=== PATIENT | female | born 1960 | race Caucasian/White ===

== ENCOUNTER 2021-02-02 10:19 | Outpatient (REF) | payer OTHER, SELFPAY ==
[2021-02-02 14:13] LABS: Glucose Urine UA NEG (NEG); Leukocyte Esterase Urine 1+ (NEG); Nitrite Urine POS (NEG); PH 7.5 (5.0-8.0); UACC Culture Trigger YES; Urine Blood 3+ (NEG); Urine Ketones NEG (NEG); Urine Protein 2+ MG/DL (NEG-TRACE)
[2021-02-02 14:21] LABS: Appearance Urine CLOUDY; Color Urine YELLOW
[2021-02-02 14:25] LABS: Bacteria Urine 4+ /LPF; Oval Fat Bodies Urine NOTED; RBC Urine 30-49 /HPF (0); Squamous Epithelial Cell Urine 1+ /LPF; WBC Urine 30-49 /HPF (0-4)
== END 2021-02-02 10:20 | disposition home or self-care (01) ==
LOC: HO.LAB 10:19
PROVIDERS: Internal Medicine; Visit Provider Nurse Practitioner Family
DX: R30.0 Dysuria (principal)
CPT/HCPCS: 81001; 81003; 87086; 87088; 87186

== ENCOUNTER 2021-02-08 09:20 | Outpatient (REF) | payer OTHER, SELFPAY ==
[2021-02-08 11:26] LABS: Alanine Aminotransferase 22 U/L (0-31); Albumin Level 3.8 g/dL (3.5-5.0); Alkaline Phosphatase 72 U/L (39-117); Anion Gap 8 (12-20); Aspartate Amino Transferase 18 U/L (5-31); Bilirubin Total 0.6 mg/dL (0.0-1.0); Blood Urea Nitrogen 12 mg/dL (9-16); Carbon Dioxide 30 mmol/L (22-29); Chloride 108 mmol/L (96-108); Estimated Glomerular Filt Rate > 60; Glucose Random 123 mg/dL (60-115); Potassium 4.1 mmol/L (3.3-5.1); Sodium 142 mmol/L (135-145); Total Protein 6.2 g/dL (6.5-8.0)
== END 2021-02-08 09:21 | disposition home or self-care (01) ==
LOC: HO.LAB 09:20
PROVIDERS: PCP Internal Medicine; Visit Provider Hospitalist
DX: R25.2 Cramp and spasm (principal)
CPT/HCPCS: 36415; 80053

== ENCOUNTER 2021-02-20 11:12 | Outpatient (REF) | payer OTHER, SELFPAY ==
[2021-02-20 14:27] LABS: Basophils Percent Auto 0.4 % (0-2); Eosinophils Absolute Auto 0.1 X10*3/uL (0.0-0.4); Eosinophils Percent Auto 1.6 % (0-4); Hematocrit 40.9 % (37-47); Hemoglobin 13.6 g/dl (12.0-16.0); Imm Gran Abs Auto 0.02 X10*3/uL (0.00-0.03); Imm Gran Pct Auto 0.3 % (0.0-0.4); Lymphocytes Absolute Auto 1.8 X10*3/uL (1.2-4.9); Lymphocytes Percent Auto 26.7 % (20-40); MANUAL DIFF FLAG NO; Mean Corpuscular HGB Conc 33.3 g/dl (31.0-35.0); Mean Corpuscular Hemoglobin 29.4 pg (27.0-33.0); Mean Corpuscular Volume 88.5 fL (80-98); Mean Platelet Volume 10.5 fL (9.4-12.3); Monocytes Absolute Auto 0.5 X10*3/uL (0.1-1.2); Monocytes Percent Auto 6.7 % (2-11); Neutrophils Absolute Auto 4.3 X10*3/uL (2.0-8.3); Neutrophils Percent Auto 64.3 % (45-73); Platelet Count 285 X10*3/uL (160-400); Red Blood Count 4.62 X10*6/uL (4.20-5.50); Red Cell Distribution Width 12.1 % (11.0-16.0); White Blood Count 6.7 X10*3/uL (4.8-10.8)
[2021-02-20 14:51] LABS: Cholesterol 231 mg/dL; HDL Cholesterol 44 mg/dL; LDL Cholesterol Calculated 165 mg/dl; Triglycerides 114 mg/dL
[2021-02-20 15:10] LABS: Thyroid Stimulating Hormone 1.22 uIU/mL (0.32-4.0)
== END 2021-02-20 11:13 | disposition home or self-care (01) ==
LOC: HO.HMGCLDS 11:12
PROVIDERS: PCP Internal Medicine; Visit Provider Internal Medicine
DX: Z00.00 Encounter for general adult medical examination without abnormal findings (principal); E03.9 Hypothyroidism, unspecified; E11.9 Type 2 diabetes mellitus without complications
CPT/HCPCS: 36415; 80061; 84443; 85025

== ENCOUNTER 2021-02-26 13:05 | Outpatient (REF) | payer OTHER, SELFPAY ==
--- NOTE | ~2021-02-26 | XR_ITS ---
EXAMINATION: BILATERAL ANKLE X-RAY CLINICAL INFORMATION: Pain COMPARISON: None TECHNIQUE: 3 views of each ankle FINDINGS: Right: Bone alignment is normal. No fracture or dislocation is seen. The ankle mortise is normal. There are calcaneal spurs. Soft tissues are otherwise normal. Left: Bone alignment is normal. No fracture or dislocation is seen. The ankle mortise is normal. There are calcaneal spurs. Soft tissues are otherwise normal. XR/XR ankle LT 2V IMPRESSION: Normal-appearing ankles. Bilateral calcaneal spurs.
--- NOTE | ~2021-02-26 | XR_ITS ---
EXAMINATION: BILATERAL ANKLE X-RAY CLINICAL INFORMATION: Pain COMPARISON: None TECHNIQUE: 3 views of each ankle FINDINGS: Right: Bone alignment is normal. No fracture or dislocation is seen. The ankle mortise is normal. There are calcaneal spurs. Soft tissues are otherwise normal. Left: Bone alignment is normal. No fracture or dislocation is seen. The ankle mortise is normal. There are calcaneal spurs. Soft tissues are otherwise normal. XR/XR ankle RT 2V IMPRESSION: Normal-appearing ankles. Bilateral calcaneal spurs.
[2021-03-01 07:54] LABS: SARS COV2 IgG Negative (Negative)
== END 2021-02-26 13:06 | disposition home or self-care (01) ==
LOC: HO.XRAY 13:05
PROVIDERS: PCP Internal Medicine; Visit Provider Internal Medicine
DX: Z20.822 Contact with and (suspected) exposure to COVID-19 (principal); M25.571 Pain in right ankle and joints of right foot; M25.572 Pain in left ankle and joints of left foot
CPT/HCPCS: 36415; 73600; 86769

== ENCOUNTER 2022-03-09 11:58 | Outpatient (REF) | payer OTHER, SELFPAY ==
--- NOTE | ~2022-03-09 | XR_ITS ---
EXAMINATION: XR LUMBOSACRAL SPINE CLINICAL INFORMATION: Dorsalgia COMPARISON: None TECHNIQUE: Three views of the lumbosacral spine. FINDINGS: There is normal thoracic kyphosis. The vertebral heights, alignment and disc heights are normal. There is no visible acute fracture, dislocation or subluxation seen. There is moderate right L4-L5 and left L5-S1 facet joint arthropathy. SI joints are symmetrical. The soft tissues are normal. XR/XR lumbar spine 2-3V IMPRESSION: Moderate right L4-L5 and left L5-S1 facet joint arthropathy. No visible acute fracture, dislocation or subluxation seen.
== END 2022-03-09 11:59 | disposition home or self-care (01) ==
LOC: HO.XRAY 11:58
PROVIDERS: PCP Internal Medicine; Visit Provider Internal Medicine
DX: M54.9 Dorsalgia, unspecified (principal)
CPT/HCPCS: 72100

== ENCOUNTER 2022-06-01 15:39 | Outpatient (REF) | payer OTHER, SELFPAY ==
--- NOTE | ~2022-06-01 | XR_ITS ---
EXAMINATION: XR CHEST CLINICAL INFORMATION: Cough COMPARISON: 10/05/2018 TECHNIQUE: 2 views of the chest were obtained. FINDINGS: No significant abnormality is noted involving the heart, lungs, mediastinum, bony thorax or soft tissues. XR/XR chest 2V IMPRESSION: Unremarkable examination.
== END 2022-06-01 15:40 | disposition home or self-care (01) ==
LOC: HO.XRAY 15:39
PROVIDERS: PCP Internal Medicine; Visit Provider Physician Assistant
DX: R05.8 Other specified cough (principal)
CPT/HCPCS: 71046

== ENCOUNTER 2023-07-19 13:43 | Outpatient (AMB) | payer MEDICARE, MEDICAID, SELFPAY ==
--- NOTE | 2023-07-19 13:47 | AM.OFFWIN_ITS ---
Intake Vital Signs 07/19/23 13:48 Height 5 ft 3 in Weight 115.666 kg BMI 45.2 BP 114/72 Blood Pressure Location Rt brachial Position Sitting Pulse 98 Pulse Source Pulse Oximeter Temp 97.4 F Temp Source Temporal Artery Scan Pulse Oximetry (%) 99 Oxygen Delivery Method Room Air Intake Visit Reasons: EP RT Foot Injury Intake Note: pt is here today for rt foot injury started Patient Tobacco Use Status: Never used Tobacco Allergies diazepam [From VALIUM] Allergy (Unknown, Verified 07/19/23 13:48) CONFUSION sulfacetamide [From Sulfacet-R] Allergy (Unknown, Verified 07/19/23 13:48) Stomach Upset sulfur [From Sulfacet-R] Allergy (Unknown, Verified 07/19/23 13:48) Stomach Upset Do you need a note to return to daycare/school/sports/work: No HPI HPI Comments History of Present Illness Details [id number] 63-year-old female presents with left fo ot pain status post tripping on the curb, she reports she fell forward onto her 2 hands, no head strike or loss consciousness. This happened on Monday, since then has been ambulatory however has been having pain with ambulation and weight bearing pain is wose around the big toe. Denies numbenss, tingling, fevers, chills, cp, sob, herrera, vision changes, dizziness. Not on thinners 2+ dorsalis pedis, anterior tibialis, po sterior tibialis pulses equal bilateral. Normal sensation distally. No footdrop. Redness to palpation to left 1st and 2nd metatarsal. No overlying skin changes. Bilateral hands unremarkable full range of motion no tenderness to palpation no tenderness to anatomical snuffbox bilaterally 2+ radial pulses. Concerns for possible fracture dislocation of metatarsal. Hands unremarkable likely sprain or strain. No head trauma, no signs of traumatic injury to head, neck, chest, abdomen or pelvis Plan- xray [facility] Medical History Morbid obesity Obesity Foot pain Surgical History History of hysterectomy Family History Mother No problems noted. Father No problems noted. Social History Housing: House Alcohol intake: never Patient Tobacco Use Status: Never used Tobacco e-Cigarette/Vaping Use: Never Used Second Hand Smoke Exposure: No service: No Current occupational status: retired Cognitive needs: No Hearing needs: No Vision needs: No Review of Systems Const Details: Constitutional : No Weight loss, No Fever, No Chills, No Fatigue, No Malaise ENT/Mouth : No sore throat, No Rhinorrhea Eyes: No Eye Pain, No Swelling, No Redness Cardiovascular : No Chest Pain, No SOB, No Dyspnea on Exertion, No Orthopnea, No Edema, No Palpitations Respiratory : No Cough, No Sputum, No Wheezing Gastrointestinal : No Nausea, No Vomiting, No Diarrhea, No Constipation, No abdominal Pain, No Hematochezia, No Melena Genitourinary : No Dysuria, No Urinary Frequency, No Hematuria, Musculoskeletal : + joint pain, No Myalgias, No Joint Swelling Skin : No Skin Lesions, No rash Neuro : No Weakness, No Numbness, No Dizziness, No Headache Psych : No Anxiety/Panic, No Depression All other systems reviewed and are negative All systems reviewed & are unremarkable except as noted in HPI and below Physical Exam Vital Signs: Last Vital Signs Temp 97.4 F 07/19/23 13:48 Pulse 98 07/19/23 13:48 BP 114/72 07/19/23 13:48 Pulse Ox 99 07/19/23 13:48 Oxygen Delivery Method Room Air 07/19/23 13:48 BMI result Body Mass Index 45.2 vss Appearance: Alert.? Oriented X3.? No acute distress.? Head: Normocephalic, atraumatic, no step-offs or deformities Eyes: Pupils equal, round and reactive to light.? CVS: Normal heart rate and rhythm.? Pulses normal.? Respiratory: No respiratory distress.? Breath sounds normal.? Abdomen: Soft and nontender.? Skin: Skin warm and dry.? Normal skin color.? Normal skin turgor.? Extremities: No lower extremity edema.? No calf ttp. 5/5 strength to bilateral upper and lower extremities 2+ dorsalis pedis, anterior tibialis, posterior tibialis pulses equal bilateral. Normal sensation distally. No footdrop. Redness to palpation to left 1st and 2nd metatarsal. No overlying skin changes. Bilateral hands unremarkable full range of motion no tenderness to palpation no tenderness to anatomical snuffbox bilaterally 2+ radial pulses. Neuro: Oriented X 3.? No motor deficit.? No sensory deficit. CN 2-12 intact Assessment & Plan Assessment & Plan (1) Left foot pain: Code(s): M79.672 - Pain in left foot Plan Take your medications as prescribed. If you were prescribed antibiotics today, it is important that you take your medication to their entirety, do not skip any doses, do not finish them early. Follow-up with your primary care provider this week. Return to the emergency department with new or worsening symptoms. Such as fevers, chills, chest pain, shortness of breath, nausea, vomiting, dizziness, headache, vision changes, lethargy In case of emergency call 911 Orders: Orders XR foot LT min 3V Today M79.672 - Pain in left foot Medications: New naproxen 500 mg PO BID PRN 14 tabs 0RF pain Coding Level of Care Code Est Pt Level 3 (85373) Diagnoses Left foot pain M79.672
[2023-07-19 13:48] VITALS: BP 114/72; PULSE 98; TEMP 36.3; O2SAT 99; BMI 45.2
--- NOTE | 2023-07-19 13:51 | MHC.OFFWIV ---
Intake Vital Signs 07/19/23 13:48 Height 5 ft 3 in Weight 115.666 kg BMI 45.2 Pulse 98 Pulse Source Pulse Oximeter Temp 97.4 F Temp Source Temporal Artery Scan Pulse Oximetry (%) 99 Oxygen Delivery Method Room Air Intake Visit Reasons: EP RT Foot Injury Patient Tobacco Use Status: Never used Tobacco Allergies diazepam [From VALIUM] Allergy (Unknown, Verified 07/19/23 13:48) CONFUSION sulfacetamide [From Sulfacet-R] Allergy (Unknown, Verified 07/19/23 13:48) Stomach Upset sulfur [From Sulfacet-R] Allergy (Unknown, Verified 07/19/23 13:48) Stomach Upset PFSH Medical History (Updated 06/01/22 @ 14:32 by Meño Oliveira PA-C) Morbid obesity Obesity Foot pain Surgical History History of hysterectomy Family History Mother No problems noted. Father No problems noted. Social History (Updated 06/11/21 @ 13:39 by LINDA Tao) Housing: House Alcohol intake: never Patient Tobacco Use Status: Never used Tobacco e-Cigarette/Vaping Use: Never Used Second Hand Smoke Exposure: No service: No Current occupational status: retired Cognitive needs: No Hearing needs: No Vision needs: No Coding
== END 2023-07-19 14:15 | disposition home or self-care (01) ==
PROVIDERS: PCP Internal Medicine; Visit Provider Physician Assistant
DX: M79.672 Pain in left foot (principal)
CPT/HCPCS: 99213

== ENCOUNTER 2023-07-19 14:02 | Outpatient (REF) | payer MEDICARE, MEDICAID, SELFPAY ==
--- NOTE | ~2023-07-19 | XR_ITS ---
EXAMINATION: XR FOOT, LEFT CLINICAL INFORMATION: Pain left foot. COMPARISON: None available. TECHNIQUE: AP, lateral, and oblique views of the left foot. FINDINGS: There is a lateral osteophyte along the base of fifth metatarsal. No fracture, dislocation or lytic process seen. The joint space is maintained throughout the entire tarsal, tarsometatarsal and interphalangeal joints. There are no erosive changes. The ankle mortise and subtalar joints are normal. Small calcaneal heel and retrocalcaneal enthesophytes are seen. XR/XR foot LT min 3V IMPRESSION: 1. Small calcaneal heel and retrocalcaneal enthesophytes. No visible acute fracture, dislocation or subluxation seen. 2. There is a lateral osteophyte base of fifth metatarsal. 3. Rest of the foot is unremarkable.
== END 2023-07-19 14:03 | disposition home or self-care (01) ==
LOC: HO.HMGCX 14:02
PROVIDERS: PCP Internal Medicine; Visit Provider Physician Assistant
DX: M79.671 Pain in right foot (principal)
CPT/HCPCS: 73630

== ENCOUNTER 2023-07-31 12:45 | Outpatient (AMB) | payer MEDICARE, MEDICAID, SELFPAY ==
[2023-07-31 14:19] VITALS: BP 120/70; PULSE 77; TEMP 36.7; O2SAT 98; BMI 45.7
--- NOTE | 2023-07-31 14:19 | AM.OFFWIN_ITS ---
Intake Vital Signs 07/31/23 14:19 Height 5 ft 3 in Weight 258 lb BMI 45.7 BP 120/70 Blood Pressure Location Lt brachial Position Sitting Pulse 77 Pulse Source Pulse Oximeter Temp 98.1 F Temp Source Temporal Artery Scan Pulse Oximetry (%) 98 Oxygen Delivery Method Room Air Intake Visit Reasons: Ep, rash in upper lip (lobby) Intake Note: pt is here today for rash on upper lip started 1month ago Patient Tobacco Use Status: Never used Tobacco Allergies diazepam [From VALIUM] Allergy (Unknown, Verified 07/31/23 14:32) CONFUSION sulfacetamide [From Sulfacet-R] Allergy (Unknown, Verified 07/31/23 14:32) Stomach Upset sulfur [From Sulfacet-R] Allergy (Unknown, Verified 07/31/23 14:32) Stomach Upset Do you need a note to return to daycare/school/sports/work: No HPI HPI Comments History of Present Illness Details Patient presents to the walk-in clinic today for sick visit. Reports 1 month of non-painful, non-pruritic rash to upper lip. She states the rash just appeared there one day, she has tried applying cortisone cream to the area but it did not change. Denies drainage, denies crusting. She has not used any new facial creams or lotions, has not eaten any new foods. Denies any recent viral illnesses or fever. Denies rashes or lesions anywhere else. [facility] Medical History Morbid obesity Obesity Foot pain Surgical History History of hysterectomy Family History Mother No problems noted. Father No problems noted. Social History Housing: House Alcohol intake: never Patient Tobacco Use Status: Never used Tobacco e-Cigarette/Vaping Use: Never Used Second Hand Smoke Exposure: No service: No Current occupational status: retired Cognitive needs: No Hearing needs: No Vision needs: No Review of Systems Const All systems reviewed & are unremarkable except as noted in HPI and below Physical Exam Vital Signs: Last Vital Signs Temp 98.1 F 07/31/23 14:19 Pulse 77 07/31/23 14:19 BP 120/70 07/31/23 14:19 Pulse Ox 98 07/31/23 14:19 Oxygen Delivery Method Room Air 07/31/23 14:19 BMI result Body Mass Index 45.7 General: awake, alert, oriented. Answers questions appropriately. Fully engaged in examination. Skin: warm, dry, intact. multiple small, inflamed papules to the upper lip and just under both nares. HEENT: Normocephalic. Hearing intact. Cardiac: External chest normal in appearance. Respiratory: No cough, audible wheezing or stridor. Abdomen: without gross distension. Neurological: Oriented to person, place, time and situation. Thought process intact. Psychiatric: Appropriate mood and affect. Good judgment and insight. Assessment & Plan Assessment & Plan (1) Perioral dermatitis: Code(s): L71.0 - Perioral dermatitis Plan Patient presented to the walk-in for rash to the upper lip. History and physical exam consistent with perioral dermatitis. Hydrocotrisone 2.5% topical, apply to affected area twice daily. Keep area clean and dry, avoid touching the area with hands. Avoid new lotions, soaps or make-up. Follow up with pcp or return to the clinic for any new or worsening symptoms. Medications: New hydrocortisone 2.5% apply to affected area twice daily 1 appl topical BID 30 grams 0RF Coding Level of Care Code Est Pt Level 3 (95577) Diagnoses Perioral dermatitis L71.0
== END 2023-07-31 15:18 | disposition home or self-care (01) ==
PROVIDERS: PCP Internal Medicine; Visit Provider Registered Nurse Emergency
DX: L71.0 Perioral dermatitis (principal)
CPT/HCPCS: 99213

== ENCOUNTER 2023-10-10 10:26 | Outpatient (AMB) | payer MEDICARE, MEDICAID, SELFPAY ==
[2023-10-10 10:39] VITALS: BP 128/80; PULSE 63; O2SAT 99; BMI 44.6
--- NOTE | 2023-10-10 10:39 | A.OFFPC_ITS ---
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 Costume Seamstress: Present Allergies diazepam [From VALIUM] Allergy (Unknown, Verified 07/31/23 14:32) CONFUSION sulfacetamide [From Sulfacet-R] Allergy (Unknown, Verified 07/31/23 14:32) Stomach Upset sulfur [From Sulfacet-R] Allergy (Unknown, Verified 07/31/23 14:32) Stomach Upset Tobacco use date assessed: 10/10/23 Fall risk assessment: No Falls in past year Last assessed Fall Risk: 10/10/23 Dental Screening Dental Screen Date: 10/10/23 Did you have a dental visit in the last 12 months?: Yes Did you have a dental problem in the last 6 months where you did not have access to dental care?: No Was dental information given to patient?: Patient has dentist HPI ?Uti HPI Details uti symptoms for a week PFSH Medical History Morbid obesity Obesity Foot pain Surgical History History of hysterectomy Family History Mother No problems noted. Father No problems noted. Social History Housing: House Alcohol intake: never Patient Tobacco Use Status: Never used Tobacco e-Cigarette/Vaping Use: Never Used Second Hand Smoke Exposure: No service: No Current occupational status: retired Cognitive needs: No Hearing needs: No Vision needs: No Questionnaire PHQ-9 Over the last 2 weeks, how often have you been bothered by any of the following problems? 1. Little interest or pleasure in doing things: not at all 2. Feeling down, depressed, or hopeless: not at all 3. Trouble falling or staying asleep, or sleeping too much: not at all 4. Feeling tired or having little energy: not at all 5. Poor appetite or overeating: not at all 6. Feeling bad about yourself - or that you are a failure or have let yourself or your family down: not at all 7. Trouble concentrating on things, such as reading the newspaper or watching television: not at all 8. Moving or speaking so slowly that other people could have noticed. Or the opposite - being so fidgety or restless that you have been moving around a lot more than usual: not at all 9. Thoughts that you would be better off or of hurting yourself in some way: not at all Total score: 0 Depression Screening Interpretation: Negative Depression Screening Done: Yes 56520 - PHQ-9 Billing: Yes Source: Developed by Drs. Aidan Bradley, Brigette Whitney, [place] Rued[place] and colleagues, with an educational zan from [employer]. Thrive Questionnaire Date Thrive assessed: 10/10/23 I am a: Patient What is your living situation today?: I have a steady place to live Within the past 12 months, did the food you bought not last and you didn't have the money to get more?: Never true Within the past 12 months, did you worry whether your food would run out before you got money to buy more?: Never true Do you have trouble paying for medicines?: No Do you have trouble getting transportation to medical appointments?: No Do you have trouble paying your heating and electricity bill?: No Do you have trouble taking care of your child, family member or friend?: No Do you have trouble with day-to-day activities such as bathing, preparing meals, shopping, managing finances, etc.?: No Are you currently unemployed and looking for a job?: No Are you interested in more education?: No Please select the resources that you would like help with: None THRIVE Score: 0 AUDIT C Alcohol Use Questionnaire (AUDIT-C) 1. How often do you have a drink containing alcohol?: Never Total Score: 0 Score Reviewed/Action Taken: Yes NÉSTOR-7 AMB Questionnaire NÉSTOR-7 Date NÉSTOR - 7 assessed: 03/05/21 Source: Developed by Drs. Aidan Bradley, Brigette Whitney, [place] and colleagues, with an educational zan from [employer]. Review of Systems Const Denies chills, Denies headache(s) and Denies weight loss ENT Denies headache(s) Card Denies chest pain, Denies syncope, Denies irregular heart rhythm and Denies dyspnea Resp Denies chest congestion, Denies cough and Denies dyspnea GI Denies abdominal pain, Denies change in stool character, Denies nausea and Denies vomiting Musc Denies deformity and Denies joint swelling Neuro Denies syncope and Denies headache(s) Physical exam (Primary Care) Vital Signs: Last Vital Signs Pulse 63 10/10/23 10:39 BP 128/80 10/10/23 10:39 Pulse Ox 99 10/10/23 10:39 Oxygen Delivery Method Room Air 10/10/23 10:39 BMI result Body Mass Index 44.6 Tobacco/Smoking Status: Tobacco use Status Tobacco use date assessed 10/10/23 10/10/23 10:43 Patient Tobacco Use Status Never used Tobacco 10/10/23 10:43 e-Cigarette/Vaping Use Never Used 10/10/23 10:43 PHQ-9: PHQ-9 Score PHQ-9: Total score 0 10/10/23 10:43 Depression Screening Interpretation: Negative Thrive Assessment: Date of Thrive Assessment Date Thrive assessed 10/10/23 10/10/23 10:43 Const General: cooperative, comfortable, no acute distress and alert Neck Neck: Yes no lymphadenopathy Thyroid: Thyroid normal Resp Effort & Inspection: normal respiratory effort Auscultation: clear to auscultation bilaterally Percussion: percussion normal Cardio Jugular venous distension: no JVD Palpation: normal PMI Rate: regular rate Rhythm: regular rhythm Heart sounds: S1 normal heart sound present and S2 normal heart sound present GI Inspection: Yes normal to inspection Palpation (GI): No hepatosplenomegaly present Skin General skin exam: no rashes or lesions noted Extrem General: Yes no clubbing, cyanosis or edema Assessment and Plan Assessment & Plan (1) UTI (urinary tract infection): Code(s): N39.0 - Urinary tract infection, site not specified Qualifiers: Urinary tract infection type: acute cystitis Hematuria presence: with hematuria Qualified Code(s): N30.01 - Acute cystitis with hematuria Plan: rx sent Orders: Orders Thyroid Stimulating Hormone Today E03.9 - Hypothyroidism, unspecified Complete Blood Count Auto Diff Today D64.9 - Anemia, unspecified Lipid Panel Today E78.5 - Hyperlipidemia, unspecified Vitamin D 25-OH Total Today Z13.9 - Encounter for screening, unspecified Comprehensive [place]. Panel Fast Today N28.9 - Disorder of kidney and ureter, unspecified Medications: New ciprofloxacin HCl (Cipro) 250 mg PO BID 10 tabs 0RF Coding Level of Care Code Est Pt Level 3 (56432) Diagnoses Acute cystitis with hematuria N30.01 Urinary tract infection type: acute cystitis Hematuria presence: with hematuria
== END 2023-10-10 10:59 | disposition home or self-care (01) ==
PROVIDERS: PCP Internal Medicine; Visit Provider Internal Medicine
DX: N30.01 Acute cystitis with hematuria (principal)
CPT/HCPCS: 99213

== ENCOUNTER 2023-11-06 10:53 | Outpatient (REF) | payer MEDICARE, MEDICAID, SELFPAY ==
[2023-11-06 11:09] LABS: MANUAL DIFF FLAG NO
[2023-11-06 11:59] LABS: Basophils Percent Auto 0.4 % (0-2); Eosinophils Absolute Auto 0.2 X10*3/uL (0.0-0.4); Eosinophils Percent Auto 1.6 % (0-4); Hematocrit 42.7 % (37.0-47.0); Imm Gran Abs Auto 0.05 X10*3/uL (0.00-0.03); Imm Gran Pct Auto 0.5 % (0.0-0.4); Lymphocytes Absolute Auto 2.5 X10*3/uL (1.2-4.9); Lymphocytes Percent Auto 24.1 % (20-40); Mean Corpuscular HGB Conc 32.8 g/dl (31.0-35.0); Mean Corpuscular Hemoglobin 28.5 pg (27.0-33.0); Mean Platelet Volume 10.1 fL (9.4-12.3); Monocytes Absolute Auto 0.6 X10*3/uL (0.1-1.2); Monocytes Percent Auto 5.4 % (2-11); Neutrophils Absolute Auto 6.9 x10*3/uL (2.0-8.3); Platelet Count 328 X10*3/uL (160-400); Red Blood Count 4.91 X10*6/uL (4.20-5.50); Red Cell Distribution Width 12.4 % (11.0-16.0); White Blood Count 10.2 X10*3/uL (4.8-10.8)
[2023-11-06 12:57] LABS: Alanine Aminotransferase 16 U/L (0-31); Albumin Level 3.9 g/dL (3.5-5.0); Alkaline Phosphatase 86 U/L (39-117); Anion Gap 12 (12-20); Aspartate Amino Transferase 14 U/L (5-31); Bilirubin Total 0.4 mg/dL (0.0-1.0); Blood Urea Nitrogen 16 mg/dL (9-16); Calcium 9.2 mg/dL (8.4-10.2); Carbon Dioxide 26 mmol/L (22-29); Chloride 107 mmol/L (96-108); Cholesterol 214 mg/dL (<200); Estimated Glomerular Filt Rate 54; Glucose Fasting 111 mg/dL (60-99); HDL Cholesterol 45 mg/dL (>40); LDL Cholesterol Calculated 145 mg/dL (<100); Sodium 141 mmol/L (135-145); Total Protein 7.2 g/dL (6.5-8.0); Triglycerides 120 mg/dL (<150)
[2023-11-06 13:23] LABS: Thyroid Stimulating Hormone 2.42 uIU/mL (0.32-4.0); Vitamin D 25-OH Total 10.7 ng/mL (>30)
== END 2023-11-06 10:54 | disposition home or self-care (01) ==
LOC: HO.LAB 10:53
PROVIDERS: PCP Internal Medicine; Visit Provider Internal Medicine
DX: E03.9 Hypothyroidism, unspecified (principal); D64.9 Anemia, unspecified; E78.5 Hyperlipidemia, unspecified; N28.9 Disorder of kidney and ureter, unspecified
CPT/HCPCS: 36415; 80053; 80061; 82306; 84443; 85025

== ENCOUNTER 2023-11-08 10:18 | Outpatient (AMB) | payer MEDICARE, MEDICAID, SELFPAY ==
[2023-11-08 10:20] VITALS: BP 122/70; PULSE 99; O2SAT 100; BMI 44.5
--- NOTE | 2023-11-08 10:20 | MHC.PC.OV ---
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 Etl [employer]form[employer] Architect: Not Required per policy Accompanied by: Self / Same As Patient Allergies diazepam [From VALIUM] Allergy (Unknown, Verified 11/08/23 10:21) CONFUSION sulfacetamide [From Sulfacet-R] Allergy (Unknown, Verified 11/08/23 10:21) Stomach Upset sulfur [From Sulfacet-R] Allergy (Unknown, Verified 11/08/23 10:21) Stomach Upset Medication List - Last Reconciled 11/09/23 by Daron aNranjo MD albuterol sulfate 90 mcg/actuation (ProAir HFA) 2 puffs inhalation Q4-6H PRN 30 days clonazepam mg PO paroxetine HCl 20 mg PO DAILY paroxetine HCl 40 mg PO DAILY Tobacco use date assessed: 10/10/23 Fall risk assessment: No Falls in past year Last assessed Fall Risk: 11/08/23 Dental Screening Dental Screen Date: 11/15/23 Did you have a dental visit in the last 12 months?: No Did you have a dental problem in the last 6 months where you did not have access to dental care?: No Was dental information given to patient?: Patient has dentist HPI Annual exam HPI Details asthma and depression; stable [facility] Medical History Morbid obesity Obesity Foot pain Surgical History History of hysterectomy Family History Mother No problems noted. Father No problems noted. Social History Housing: House Alcohol intake: never Patient Tobacco Use Status: Never used Tobacco e-Cigarette/Vaping Use: Never Used Second Hand Smoke Exposure: No service: No Current occupational status: retired Cognitive needs: No Hearing needs: No Vision needs: Yes (glasses) Questionnaire Thrive Questionnaire Date Thrive assessed: 10/10/23 NÉSTOR-7 AMB Questionnaire NÉSTOR-7 Date NÉSTOR - 7 assessed: 03/05/21 Source: Developed by Drs. Aidan Bradley, Brigette Whitney, [place] and colleagues, with an educational zan from [employer]. Review of Systems Const Denies chills, Denies fatigue, Denies headache(s) and Denies weight loss Eyes Denies change in vision, Denies diplopia and Denies eye pain ENT Denies vertigo, Denies dizziness, Denies headache(s) and Denies nasal discharge Card Denies chest pain, Denies rapid heart rate and Denies dyspnea on exertion Resp Denies chest congestion, Denies cough, Denies pain with cough and Denies dyspnea on exertion GI Denies abdominal pain, Denies hematochezia and Denies change in bowel habits Musc Denies myalgias, Denies arthralgias and Denies joint swelling Skin/Breast Denies lesions and Denies unusual bruising Neuro Denies vertigo, Denies dizziness, Denies headache(s) and Denies focal weakness Endo Denies fatigue Physical exam (Primary Care) Vital Signs: Last Vital Signs Pulse 99 11/08/23 10:20 BP 122/70 11/08/23 10:20 Pulse Ox 100 11/08/23 10:20 Oxygen Delivery Method Room Air 11/08/23 10:20 BMI result Body Mass Index 44.5 Tobacco/Smoking Status: Tobacco use Status Tobacco use date assessed 10/10/23 11/08/23 10:21 Patient Tobacco Use Status Never used Tobacco 11/08/23 10:21 e-Cigarette/Vaping Use Never Used 11/08/23 10:21 Thrive Assessment: Date of Thrive Assessment Date Thrive assessed 10/10/23 11/08/23 10:21 Const General: cooperative, healthy appearing and no acute distress Orientation/consciousness: oriented to person, oriented to place and oriented to time HENMT Head: Yes normal to inspection, Yes normocephalic and Yes atraumatic Mouth: Normal oral and palatal mucosa present and tongue normal Throat: Yes posterior oropharynx normal and Yes uvula midline Eyes General: appearance normal, both eyes and all related structures Neck Neck: Yes normal visual inspection, Yes full ROM and Yes no lymphadenopathy Thyroid: Thyroid normal Carotids: normal carotid upstroke Chest Chest palpation & inspection: normal inspection of the chest Resp Effort & Inspection: normal respiratory effort and able to speak in complete sentences Auscultation: clear to auscultation bilaterally Cardio Jugular venous distension: no JVD Palpation: normal PMI Rate: regular rate Rhythm: regular rhythm Heart sounds: S1 normal heart sound present and S2 normal heart sound present GI Inspection: Yes normal to inspection Palpation (GI): Soft to palpation and No hepatosplenomegaly present Auscultation: normal bowel sounds General: Yes no CVA tenderness Back/Spine/Pelvis Back: no CVA tenderness Skin General skin exam: no rashes or lesions noted Neuro General: oriented to person, oriented to place and oriented to time Extrem General: Yes normal to inspection and Yes full ROM Assessment and Plan Assessment & Plan (1) Physical exam: Code(s): Z00.00 - Encounter for general adult medical examination without abnormal findings Plan: stable; do labs (2) Asthma: Code(s): J45.909 - Unspecified asthma, uncomplicated Plan: stable; same rx Orders: Orders Lipid Panel Today E78.5 - Hyperlipidemia, unspecified Complete Blood Count Auto Diff Today D64.9 - Anemia, unspecified Thyroid Stimulating Hormone Today E03.9 - Hypothyroidism, unspecified Comprehensive [place]. Panel Fast Today N28.9 - Disorder of kidney and ureter, unspecified Coding Level of Care Code Est Pt Prev Care >65y(85365) Diagnoses Physical exam Z00.00 Asthma J45.909
== END 2023-11-08 11:01 | disposition home or self-care (01) ==
PROVIDERS: PCP Internal Medicine; Visit Provider Internal Medicine
DX: Z00.00 Encounter for general adult medical examination without abnormal findings (principal); J45.909 Unspecified asthma, uncomplicated
CPT/HCPCS: 99397

== ENCOUNTER 2023-12-20 12:12 | Outpatient (AMB) | payer MEDICARE, MEDICAID, SELFPAY ==
[2023-12-20 12:20] VITALS: BP 110/80; PULSE 105; TEMP 36.5; O2SAT 96
--- NOTE | 2023-12-20 12:20 | AM.OFFWIN_ITS ---
Intake Vital Signs 12/20/23 12:20 Height 5 ft 3 in BMI Reason not done Patient refused/unable BP 110/80 Blood Pressure Location Lt brachial Position Sitting Pulse 105 H Pulse Source Pulse Oximeter Temp 97.7 F Temp Source Temporal Artery Scan Pulse Oximetry (%) 96 Oxygen Delivery Method Room Air Intake Visit Reasons: EP broken ankle??? Intake Note: pt s here today for broken ankle started yesterday Patient Tobacco Use Status: Never used Tobacco Allergies diazepam [From VALIUM] Allergy (Unknown, Verified 12/20/23 12:25) CONFUSION sulfacetamide [From Sulfacet-R] Allergy (Unknown, Verified 12/20/23 12:25) Stomach Upset sulfur [From Sulfacet-R] Allergy (Unknown, Verified 12/20/23 12:25) Stomach Upset Do you need a note to return to daycare/school/sports/work: No HPI HPI Comments History of Present Illness Details 63 y/o female patient who presents to [facility] in clinic with c/o right Ankle/foot swelling and pain since yesterday. Pt fell at home and landed on her Ankle. [facility] Medical History Morbid obesity Obesity Foot pain Surgical History History of hysterectomy Family History Mother No problems noted. Father No problems noted. Social History Housing: House Alcohol intake: never Patient Tobacco Use Status: Never used Tobacco e-Cigarette/Vaping Use: Never Used Second Hand Smoke Exposure: No service: No Current occupational status: retired Cognitive needs: No Hearing needs: No Vision needs: Yes (glasses) Review of Systems Const All systems reviewed & are unremarkable except as noted in HPI and below Physical Exam Vital Signs: Last Vital Signs Temp 97.7 F 12/20/23 12:20 Pulse 105 H 12/20/23 12:20 BP 110/80 12/20/23 12:20 Pulse Ox 96 12/20/23 12:20 Oxygen Delivery Method Room Air 12/20/23 12:20 Const General: no acute distress; No comfortable Nutritional Appearance: obese morbidly obese Orientation/consciousness: patient oriented x3 Limitations: wheelchair Neuro General: patient oriented x3 Extrem Right lower extremity: normal capillary refill, ankle (Limited ROM due to pain.) Details: tenderness Location: of the lateral malleolus, swelling Details: posteriorly and warmth; no crepitus and foot Details: normal capillary refill, tenderness Location: of the calcaneus Details: point tenderness and toes with normal ROM; no laceration, no ecchymosis and no crepitus Left lower extremity: normal to inspection and full ROM Assessment & Plan Assessment & Plan (1) Right ankle swelling: Code(s): M25.471 - Effusion, right ankle Plan: - Xray right ankle/Foot - Aircast for walking - NSAIDs for pain relief. (2) Right ankle sprain: Code(s): S93.401A - Sprain of unspecified ligament of right ankle, initial encounter Qualifiers: Encounter type: initial encounter Involved ligament of ankle: unspecified ligament Qualified Code(s): S93.401A - Sprain of unspecified ligament of right ankle, initial encounter Plan: Sprain vs Strain vs Fracture Xray reading pending. Orders: Orders XR ankle RT min 3V Today M25.471 - Effusion, right ankle Referrals Orthopedics Referral M25.471 - Effusion, right ankle Coding Level of Care Code Est Pt Level 4 (36736) Diagnoses Right ankle swelling M25.471 Sprain of right ankle, unspecified ligament, initial encounter S93.401A Encounter type: initial encounter Involved ligament of ankle: unspecified ligament Time Spent (min) 20
== END 2023-12-20 14:01 | disposition home or self-care (01) ==
PROVIDERS: PCP Internal Medicine; Visit Provider Nurse Practitioner Family
DX: M25.471 Effusion, right ankle (principal); S93.401A Sprain of unspecified ligament of right ankle, initial encounter
CPT/HCPCS: 99214

== ENCOUNTER 2023-12-20 12:33 | Outpatient (REF) | payer MEDICARE, MEDICAID, SELFPAY ==
--- NOTE | ~2023-12-20 | XR_ITS ---
EXAMINATION: XR ANKLE, RIGHT CLINICAL INFORMATION: Right ankle pain and swelling. COMPARISON: 02/26/2021 TECHNIQUE: AP, lateral, and mortise views of the right ankle. FINDINGS: Oblique fracture of the distal fibula below the syndesmosis. Mild widening of the lateral clear space. Talar dome is intact. Marked lateral soft tissue swelling and subcutaneous edema. Small posterior plantar calcaneal spurs. XR/XR ankle RT min 3V IMPRESSION: Oblique fracture of the distal fibula below the syndesmosis. Marked soft tissue swelling.
== END 2023-12-20 12:34 | disposition home or self-care (01) ==
LOC: HO.HMGCX 12:33
PROVIDERS: PCP Internal Medicine; Visit Provider Nurse Practitioner Family
DX: M25.471 Effusion, right ankle (principal)
CPT/HCPCS: 73610

== ENCOUNTER 2024-01-09 14:11 | Outpatient (AMB) | payer MEDICARE, MEDICAID, SELFPAY ==
--- NOTE | 2024-01-09 14:19 | A.OFFVIS_ITS ---
Vital Signs 01/09/24 14:34 Height 5 ft 3 in Weight 251 lb BMI 44.5 Intake Visit Reasons: PUBLIC HEALTH EPIDEMIOLOGIST-Effusion, right ankle Intake Note: Rebeka a 63 year old female who presents today with her daughter for an evaluation of right ankle, DOI 12/18/23. Patient reports she fell causing an injury to her right ankle. She presented to [facility] in clinic where xrays were taken and placed in a walking boot. Currently her pain is located at the lateral aspect of ankle. States pain at the top of her foot however this could be from wearing walking boot incorrectly. Allergies diazepam [From VALIUM] Allergy (Unknown, Verified 01/09/24 14:34) CONFUSION sulfacetamide [From Sulfacet-R] Allergy (Unknown, Verified 01/09/24 14:34) Stomach Upset sulfur [From Sulfacet-R] Allergy (Unknown, Verified 01/09/24 14:34) Stomach Upset Medication List - Last Reconciled 01/09/24 by Anna Osorio PA-C albuterol sulfate 90 mcg/actuation (ProAir HFA) 2 puffs inhalation Q4-6H PRN 30 days clonazepam mg PO paroxetine HCl 20 mg PO DAILY paroxetine HCl 40 mg PO DAILY HPI HPI PUBLIC HEALTH EPIDEMIOLOGIST-Effusion, right ankle: Details: 63-year-old female who presents to the office today with her daughter for evaluation of right ankle injury after a fall at home, 12/18/23. She was seen on 12/20/23 where x-rays were performed and she was placed in a walking boot. She currently states she has pain at the lateral aspect of her ankle. She also c/o pain at the top of her foot however she believes this could be from wearing her walking boot incorrectly. [facility] Medical History (Updated 01/09/24 @ 20:56 by Anna Osorio PA-C) Morbid obesity Obesity Foot pain Surgical History (Updated 01/09/24 @ 14:22 by LINDA Godoy) History of surgery of liver History of hysterectomy Family History Mother No problems noted. Father No problems noted. Social History Housing: House Alcohol intake: never Patient Tobacco Use Status: Never used Tobacco e-Cigarette/Vaping Use: Never Used Second Hand Smoke Exposure: No service: No Current occupational status: retired Cognitive needs: No Hearing needs: No Vision needs: Yes (glasses) Review of Systems Const All systems reviewed & are unremarkable except as noted in HPI and below Physical Exam Vital Signs: BMI result Body Mass Index 44.5 Const General: cooperative, healthy appearing, comfortable, no acute distress, well developed and alert Orientation/consciousness: patient oriented x3 HEENT Head: Yes normal to inspection, Yes normocephalic and Yes atraumatic Eyes General: appearance normal, both eyes and all related structures Resp Effort & Inspection: normal respiratory effort and able to speak in complete sentences Cardio Rate: regular rate Peripheral pulses: Peripheral pulses 2+ throughout GI Palpation (GI): Soft to palpation Skin Lesions: no lesions Rashes: no rashes Neuro General: patient oriented x3 Extrem Other: Right ankle: Normal to inspection with mild swelling over the lateral malleolus with tenderness along the soft tissues. No discomfort along the posterior aspect of the ankle, no deformity along the Achilles tendon, negative Barrow?s. No pain along the syndesmosis or anterior tibia. No laxity, NVI. Office Procedures Fracture Care Fracture Billing Code: Fracture Billing Code Results Reviewed Results Reviewed: Xrays were obtained in the office today and personally reviewed by me of the right ankle show distal fibular fracture with ankle mortise intact. Assessment & Plan Assessment & Plan (1) Fx lateral malleolus-closed: Code(s): S82.63XA - Displaced fracture of lateral malleolus of unspecified fibula, initial encounter for closed fracture Category: Medical Qualifiers: Encounter type: initial encounter Fracture alignment: nondisplaced Laterality: right Qualified Code(s): S82.64XA - Nondisplaced fracture of lateral malleolus of right fibula, initial encounter for closed fracture Plan She will continue with the boot, wbat. I did explain with the level of the fracture, it is something we want to watch closely to make sure there is no displacement of the ankle mortise. I will see her back in 1 week for repeat x- rays, sooner if needed. Orders: Orders XR ankle RT min 3V Today M25.571 - Pain in right ankle and joints of right foot Patient Instructions: Scribed for Ta-BEA Cherry-C, by Gerardo Park, medical specialist, on 01/09/2024 at 2:15 PM EST.? I, Anna Osorio PA-C, have personally reviewed and agree with the information entered by the scribe. Coding Level of Care Code New Pt Level 3 (07107) Diagnoses Closed nondisplaced fracture of lateral malleolus of right fibula, initial encounter S82.64XA Encounter type: initial encounter Fracture alignment: nondisplaced Laterality: right CPT Codes Fracture Care - Fracture Billing Code: Fracture Billing Code ([id number])
[2024-01-09 14:34] VITALS: BMI 44.5
== END 2024-01-09 15:16 | disposition home or self-care (01) ==
LOC: HO.HOS 14:11
PROVIDERS: PCP Internal Medicine; Visit Provider Physician Assistant
DX: S82.64XA Nondisplaced fracture of lateral malleolus of right fibula, initial encounter for closed fracture (principal)
CPT/HCPCS: 99203

== ENCOUNTER 2024-01-09 14:11 | Outpatient (REF) | payer MEDICARE, MEDICAID, SELFPAY ==
--- NOTE | ~2024-01-09 | XR_ITS ---
EXAMINATION: XR ANKLE, RIGHT CLINICAL INFORMATION: Pain in right ankle injury to foot. COMPARISON: None available. TECHNIQUE: AP, lateral, and mortise views of the right ankle. FINDINGS: Redemonstration of oblique fracture of the distal fibula with mild widening of the lateral clear space. Diffuse soft tissue swelling and joint effusion redemonstrated. Alignment is similar. Small plantar calcaneal spur. XR/XR ankle RT min 3V IMPRESSION: Redemonstration of mildly displaced oblique fracture of the distal fibula.
== END 2024-01-09 14:12 | disposition home or self-care (01) ==
LOC: HO.HOSX 14:11
PROVIDERS: PCP Internal Medicine; Visit Provider Physician Assistant
DX: S82.64XA Nondisplaced fracture of lateral malleolus of right fibula, initial encounter for closed fracture (principal); W19.XXXA Unspecified fall, initial encounter; Y93.9 Activity, unspecified; Y92.9 Unspecified place or not applicable; Y99.9 Unspecified external cause status
CPT/HCPCS: 73610; 99202

== ENCOUNTER 2024-01-15 12:35 | Outpatient (REF) | payer MEDICARE, MEDICAID, SELFPAY ==
--- NOTE | ~2024-01-15 | XR_ITS ---
EXAMINATION: XR ANKLE, RIGHT CLINICAL INFORMATION: Pain in right ankle and joints of right foot COMPARISON: None available. TECHNIQUE: AP, lateral, and mortise views of the right ankle. FINDINGS: Again seen is an oblique fracture of the distal fibula below the syndesmosis. Interval development of bridging callus. The talar dome is intact. Marked interval decrease in soft tissue swelling. Small posterior plantar calcaneal spur is seen. There is a calcification at the insertion the Achilles tendon. XR/XR ankle RT min 3V IMPRESSION: Healing fracture distal fibula with interval decrease and adjacent soft tissue swelling.
== END 2024-01-15 12:36 | disposition home or self-care (01) ==
LOC: HO.HOSX 12:35
PROVIDERS: Visit Provider Physician Assistant
DX: S82.64XD Nondisplaced fracture of lateral malleolus of right fibula, subsequent encounter for closed fracture with routine healing (principal)
CPT/HCPCS: 73610; 99212

== ENCOUNTER 2024-01-15 13:04 | Outpatient (AMB) | payer MEDICARE, MEDICAID, SELFPAY ==
--- NOTE | 2024-01-15 13:24 | MHC.OFFVIS ---
Vital Signs 01/15/24 13:28 Height 5 ft 3 in Weight 251 lb BMI 44.5 Intake Visit Reasons: OV-1wk f/u rt ankle fx w xrays Intake Note: Rebeka a 63 year old female who presents today for a follow up of right ankle fracture, DOI 12/18/23. Patient reports pain with certain movements of her foot. She continues to wear boot as instructed. Finds relief with epsom salt soaks. Allergies diazepam [From VALIUM] Allergy (Unknown, Verified 01/15/24 13:30) CONFUSION sulfacetamide [From Sulfacet-R] Allergy (Unknown, Verified 01/15/24 13:30) Stomach Upset sulfur [From Sulfacet-R] Allergy (Unknown, Verified 01/15/24 13:30) Stomach Upset HPI HPI OV-1wk f/u rt ankle fx w xrays: Details: 63 yo female returns to the office today f/u right ankle distal fib fracture. She continues to wbat with the boot. [facility] Medical History (Updated 01/09/24 @ 20:56 by Anna Osorio PA-C) Morbid obesity Obesity Foot pain Surgical History History of surgery of liver History of hysterectomy Family History Mother No problems noted. Father No problems noted. Social History Housing: House Alcohol intake: never Patient Tobacco Use Status: Never used Tobacco e-Cigarette/Vaping Use: Never Used Second Hand Smoke Exposure: No service: No Current occupational status: retired Cognitive needs: No Hearing needs: No Vision needs: Yes (glasses) Review of Systems Const All systems reviewed & are unremarkable except as noted in HPI and below Physical Exam Vital Signs: BMI result Body Mass Index 44.5 Const General: cooperative, healthy appearing, comfortable, no acute distress, well developed and alert Orientation/consciousness: patient oriented x3 HEENT Head: Yes normal to inspection, Yes normocephalic and Yes atraumatic Eyes General: appearance normal, both eyes and all related structures Resp Effort & Inspection: normal respiratory effort and able to speak in complete sentences Cardio Rate: regular rate Peripheral pulses: Peripheral pulses 2+ throughout GI Palpation (GI): Soft to palpation Skin Lesions: no lesions Rashes: no rashes Neuro General: patient oriented x3 Extrem Other: Right ankle: Normal to inspection with mild swelling over the lateral malleolus with tenderness along the soft tissues. No discomfort along the posterior aspect of the ankle, no deformity along the Achilles tendon, negative Barrow?s. No pain along the syndesmosis or anterior tibia. No laxity, NVI. Results Reviewed Results Reviewed: Xrays were obtained in the office today and personally reviewed by me of the right ankle show distal fibular fracture with ankle mortise intact. Assessment & Plan Assessment & Plan (1) Fx lateral malleolus-closed: Code(s): S82.63XA - Displaced fracture of lateral malleolus of unspecified fibula, initial encounter for closed fracture Category: Medical Qualifiers: Encounter type: initial encounter Fracture alignment: nondisplaced Laterality: right Qualified Code(s): S82.64XA - Nondisplaced fracture of lateral malleolus of right fibula, initial encounter for closed fracture Plan: She willl continue wbat with the boot at all times. She can remove for rest and hygiene. She will see me back in 3-4 weeks with xrays, sooner if needed. Orders: Orders XR ankle RT min 3V Today M25.571 - Pain in right ankle and joints of right foot Coding Level of Care Code Global (33272) Diagnoses Closed nondisplaced fracture of lateral malleolus of right fibula, initial encounter S82.64XA Encounter type: initial encounter Fracture alignment: nondisplaced Laterality: right
[2024-01-15 13:28] VITALS: BMI 44.5
== END 2024-01-15 13:56 | disposition home or self-care (01) ==
PROVIDERS: PCP Internal Medicine; Visit Provider Physician Assistant
DX: S82.64XA Nondisplaced fracture of lateral malleolus of right fibula, initial encounter for closed fracture (principal)
CPT/HCPCS: 99213

== ENCOUNTER 2024-02-16 13:45 | Outpatient (AMB) | payer MEDICARE, MEDICAID, SELFPAY ==
--- NOTE | 2024-02-16 13:49 | MHC.OFFVIS ---
Vital Signs 02/16/24 13:50 Height 5 ft 3 in Weight 230 lb BMI 40.7 Intake Visit Reasons: OV-f/u Rt ankle fx w xrays Intake Note: Rebeka is a 64 year old female who presents today with her daughter for a follow up s/p fracture of lateral malleolus of right fibula, DOI 12/18/23. Patient reports some days her foot is okay and other days she has pain in the top and lateral aspect of her foot but is able to tolerate it. When she moves her foot a certain way she expresses occasional pain. She continues to use her boot throughout the day except showering. Patient would like to know if she can be placed in an ankle brace today instead of her boot. Accompanied by: Daughter Allergies diazepam [From VALIUM] Allergy (Unknown, Verified 02/16/24 13:51) CONFUSION sulfacetamide [From Sulfacet-R] Allergy (Unknown, Verified 02/16/24 13:51) Stomach Upset sulfur [From Sulfacet-R] Allergy (Unknown, Verified 02/16/24 13:51) Stomach Upset HPI HPI OV-f/u Rt ankle fx w xrays: Details: 64-year-old female who returns to the office today with her daughter for a follow-up of right ankle fracture, 12/18/23. She reports she has occasional tolerable pain at the top and lateral aspect of her foot. Her pain often comes with moving her foot a certain way. She continues to wear her boot as instructed. She has no other concerns today. [facility] Medical History Morbid obesity Obesity Foot pain Surgical History History of surgery of liver History of hysterectomy Family History Mother No problems noted. Father No problems noted. Social History Housing: House Alcohol intake: never Patient Tobacco Use Status: Never used Tobacco e-Cigarette/Vaping Use: Never Used Second Hand Smoke Exposure: No service: No Current occupational status: retired Cognitive needs: No Hearing needs: No Vision needs: Yes (glasses) Review of Systems Const All systems reviewed & are unremarkable except as noted in HPI and below Physical Exam Vital Signs: BMI result Body Mass Index 40.7 Const General: cooperative, healthy appearing, comfortable, no acute distress, well developed and alert Orientation/consciousness: patient oriented x3 HEENT Head: Yes normal to inspection, Yes normocephalic and Yes atraumatic Eyes General: appearance normal, both eyes and all related structures Resp Effort & Inspection: normal respiratory effort and able to speak in complete sentences Cardio Rate: regular rate Peripheral pulses: Peripheral pulses 2+ throughout GI Palpation (GI): Soft to palpation Skin Lesions: no lesions Rashes: no rashes Neuro General: patient oriented x3 Extrem Other: Right ankle: Normal to inspection with trace swelling over the lateral malleolus with mild tenderness along the soft tissues. No discomfort along the posterior aspect of the ankle, no deformity along the Achilles tendon, negative Barrow?s. No pain along the syndesmosis or anterior tibia. No laxity, NVI. Results Reviewed Results Reviewed: Xrays were obtained in the office today and personally reviewed by me of the right ankle show distal fibular fracture with ankle mortise intact and callus formation Assessment & Plan Assessment & Plan (1) Fx lateral malleolus-closed: Code(s): S82.63XA - Displaced fracture of lateral malleolus of unspecified fibula, initial encounter for closed fracture Category: Medical Qualifiers: Encounter type: subsequent encounter Fracture alignment: nondisplaced Laterality: right Fracture healing: with routine healing Qualified Code(s): S82.64XD - Nondisplaced fracture of lateral malleolus of right fibula, subsequent encounter for closed fracture with routine healing Plan We will transition her to a lace up ankle brace. She will begin physical therapy to work on ROM, gait training and proprioceptive training. She will increase activities as tolerated and see me back in 8 weeks with new x-rays, sooner if needed. Orders: Orders XR ankle RT min 3V Today M25.571 - Pain in right ankle and joints of right foot Patient Instructions: Scribed for Anna Osorio PA-C, by Gerardo aPrk director biomedical engineering, on 02/16/2024 at 1:45 PM EST.? I, Anna Osorio PA-C, have personally reviewed and agree with the information entered by the scribe. Coding Level of Care Code Global (01157) Diagnoses Closed nondisplaced fracture of lateral malleolus of right fibula with routine healing, subsequent encounter S82.64XD Encounter type: subsequent encounter Fracture alignment: nondisplaced Laterality: right Fracture healing: with routine healing
[2024-02-16 13:50] VITALS: BMI 40.7
== END 2024-02-16 14:43 | disposition home or self-care (01) ==
PROVIDERS: PCP Internal Medicine; Visit Provider Physician Assistant
DX: S82.64XD Nondisplaced fracture of lateral malleolus of right fibula, subsequent encounter for closed fracture with routine healing (principal); W19.XXXD Unspecified fall, subsequent encounter
CPT/HCPCS: 99213

== ENCOUNTER 2024-02-16 13:45 | Outpatient (REF) | payer MEDICARE, MEDICAID, SELFPAY ==
--- NOTE | ~2024-02-16 | XR_ITS ---
EXAMINATION: XR ANKLE, RIGHT CLINICAL INFORMATION: Pain in right ankle and joints of foot. COMPARISON: January 15, 2024. TECHNIQUE: AP, lateral, and mortise views of the right ankle. FINDINGS: Redemonstration of oblique fracture of the distal fibula below the syndesmosis. Talar dome is intact. There is evidence of bridging callus formation. Joint effusion with lateral soft tissue swelling. Small plantar calcaneal spur. Calcification at the insertion of Achilles tendon. XR/XR ankle RT min 3V IMPRESSION: Healing fracture of the distal fibula.
== END 2024-02-16 13:46 | disposition home or self-care (01) ==
LOC: HO.HOSX 13:45
PROVIDERS: PCP Internal Medicine; Visit Provider Physician Assistant
DX: M25.571 Pain in right ankle and joints of right foot (principal); S82.64XD Nondisplaced fracture of lateral malleolus of right fibula, subsequent encounter for closed fracture with routine healing; X58.XXXD Exposure to other specified factors, subsequent encounter
CPT/HCPCS: 73610; 99212

== ENCOUNTER 2024-03-26 14:09 | Outpatient (AMB) | payer MEDICARE, MEDICAID, SELFPAY ==
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
[2024-03-26 14:14] VITALS: BP 140/80; PULSE 112; O2SAT 98; BMI 45.2
[2024-03-26 14:46] VITALS: PULSE 106
== END 2024-03-26 14:55 | disposition home or self-care (01) ==
PROVIDERS: PCP Internal Medicine; Visit Provider Physician Assistant
DX: M62.838 Other muscle spasm (principal); S93.491A Sprain of other ligament of right ankle, initial encounter
CPT/HCPCS: 99214

== ENCOUNTER 2024-03-26 14:38 | Outpatient (REF) | payer MEDICARE, MEDICAID, SELFPAY ==
--- NOTE | ~2024-03-26 | XR_ITS ---
EXAMINATION: XR FOOT, RIGHT CLINICAL INFORMATION: Unspecified injury of unspecified foot, initial encounter COMPARISON: Right foot radiograph 07/10/2015 TECHNIQUE: AP, lateral, and oblique views of the right foot. FINDINGS: Partially visualized healed fracture of the distal right fibula. No acute fracture. Alignment is maintained. Again noted small bony exostosis along the lateral aspect of the proximal fifth metatarsal, stable dating back to 07/10/2015. Tiny well-corticated osseous density along the lateral aspect of the distal middle phalanx of the second toe may represent sequelae of prior trauma. Degenerative changes along the dorsal midfoot and hindfoot. Plantar and dorsal calcaneal enthesophytes. Mild soft tissue swelling. XR/XR foot RT min 3V IMPRESSION: No acute fracture.Again noted small bony exostosis along the lateral aspect of the proximal fifth metatarsal, stable dating back to 07/10/2015. Tiny well-corticated osseous density along the lateral aspect of the distal middle phalanx of the second toe may represent sequelae of prior trauma. Mild soft tissue swelling of the foot.
--- NOTE | ~2024-03-26 | XR_ITS ---
EXAMINATION: XR ANKLE, RIGHT CLINICAL INFORMATION: Unspecified injury of unspecified ankle, initial encounter COMPARISON: Right ankle radiograph 02/16/2024 TECHNIQUE: 2 views of the right ankle. FINDINGS: Again noted healed chronic fracture of the distal right fibula at the level of the syndesmosis. The talar dome is intact. Redemonstrated mild widening of the lateral clear space. Persistent soft tissue swelling of the ankle. No new fractures. XR/XR ankle RT 2V IMPRESSION: Again noted healed chronic fracture of the distal right fibula. Persistent soft tissue swelling of the ankle.
== END 2024-03-26 14:39 | disposition home or self-care (01) ==
LOC: HO.HMGCX 14:38
PROVIDERS: PCP Internal Medicine; Visit Provider Physician Assistant
DX: S99.911A Unspecified injury of right ankle, initial encounter (principal)
CPT/HCPCS: 73600; 73630

== ENCOUNTER 2024-04-12 11:52 | Outpatient (REF) | payer MEDICARE, MEDICAID, SELFPAY ==
--- NOTE | ~2024-04-12 | XR_ITS ---
EXAMINATION: XR ANKLE, RIGHT CLINICAL INFORMATION: Pain in right ankle and joints of right foot. COMPARISON: 03/26/2024 TECHNIQUE: AP, lateral, and mortise views of the right ankle. FINDINGS: Redemonstration of healed oblique fracture of the distal right fibula. Redemonstration of mild widening of the lateral clear space. Ankle mortise is preserved. Small plantar and posterior calcaneal spurs. XR/XR ankle RT min 3V IMPRESSION: Redemonstration of healed oblique fracture of the distal right fibula. Redemonstration of mild widening of the lateral clear space. Ankle mortise is preserved. Electronically signed by: Janneth Dumas MD 05/01/2024 01:46 PM EDT
== END 2024-04-12 11:53 | disposition home or self-care (01) ==
LOC: HO.XRAY 11:52
PROVIDERS: PCP Internal Medicine; Visit Provider Physician Assistant
DX: M25.571 Pain in right ankle and joints of right foot (principal)
CPT/HCPCS: 73610

== ENCOUNTER 2025-05-17 13:11 | Outpatient (AMB) | payer OTHER, SELFPAY ==
--- OUTSIDE RECORDS SUMMARY | 2025-05-17 13:13 | XMS_ITS | Clinical Summary ---
Author Organization [facility] Address [address] [place] [id number] Phone Care Team Providers Care Joint Supervisor Name Role Phone Daron Naranjo MD Primary Care Provider [phone] Allergies No known active allergies Medications clonazePAM (KLONOPIN) 1 MG tablet TAKE 1 TABLET IN THE AM AND 1/2 TABLET IN THE AFTERNOON 3 Active PARoxetine (PAXIL) 40 MG tablet Take 40 mg by mouth daily. 3 Active PARoxetine (PAXIL) 20 MG tablet Take 20 mg by mouth every morning. Active albuterol 90 mcg/actuation inhaler INHALE 2 PUFFS BY MOUTH EVERY 4 TO 6 HOURS NEEDED FOR BRONCHOSPASM FOR 30 DAYS 4 Active Active Problems Problem Noted Date Diagnosed Date COVID 04/21/2024 Social History Tobacco Use Types Packs/Day Years Used Date Smoking Tobacco: Never Assessed Education Answer Date Recorded Are you interested in more education? Not on lauro e 12/10/2022 Are you concerned about learning? Not on file 12/10/2022 No 12/10/2022 No 12/10/2022 Digital Access Answer Date Recorded No 01/06/2023 No 01/06/2023 No 01/06/2023 Reliable internet access at home? Not on file 01/06/2023 Device with a working camera? Not on file Comments Unknown Sex and Gender Information Value Date Recorded Sex Assigned at Not on file Legal Sex Female 2:40 PM EDT Gender Identity Not on file Sexual Orientation Not on file Last Filed Vital Signs Vital Sign Reading Time Taken Comments Blood Pressure 122/79 04/21/2024 3:17 PM EDT Pulse 107 04/21/2024 3:17 PM EDT Temperature 37.1 C (98.7 F) 04/21/2024 3:17 PM EDT Respiratory Rate 20 04/21/2024 3:17 PM EDT Oxygen Saturation 96% 04/21/2024 3:17 PM EDT Inhaled Oxygen Concentration - - Weight 113.4 kg (250 lb) 04/21/2024 3:17 PM EDT Height 160 cm (5' 3 ) 04/21/2024 3:17 PM EDT Body Mass Index 44.29 04/21/2024 3:17 PM EDT Plan of Treatment Health Maintenance Due Date Last Done Comments Adult Td,Tdap Booster 1958 LIPID PANEL 1958 DEPRESSION SCREENING 1970 SMOKING Hx and SMOKELESS TOBACCO SCREENING 1971 HEPATITIS C SCREENING 02/09/1976 SCREENING FOR DIABETES 1993 MAMMOGRAM 1998 COLOGUARD 2003 COLONOSCOPY 2003 COLORECTAL CANCER SCREENING 2003 FIT TEST 2003 FOBT 2003 SIGMOIDOSCOPY 2003 VIRTUAL COLONOSCOPY 2003 PNEUMOCOCCAL VACCINES (50+ years) (1 of 1 - PCV) 02/09/2008 RSV VACCINE (1 - Risk 50-74 years 1-dose series) 02/09/2008 ZOSTER VACCINES (1 of 2) 02/09/2008 OSTEOPOROSIS SCREENING INITI AL (ONE-TIME) 2023 INFLUENZA VACCINE (#1) 2025 COVID-19 VACCINE (3 - 2024-2 6 season) 2025 04/30/2021, 04/09/2021 HEPATITIS A VACCINES Aged Out No long er eligible based on patient's age to complete this topic HIB VACCINES Aged Out No longer eligi ble based on patient's age to complete this topic MENINGOCOCCAL VACCINES (ACWY) Aged Out No longer eligible based on patient's age to complete this topic MENINGOCOCCAL VACCINES (B) Aged Out N o longer eligible based on patient's age to complete this topic Medical Devices Not on file Insurance [place] [employer] B [facility] [place] B Care Teams Joint Supervisor Relationship Specialty Start Date End Date Daron Naranjo MD [address] [place] [address] [place] [address] PCP - General Internal Medicine 12/02/22 Additional Source Comments The information contained in this document represents components of the legal health record. It is not the complete legal health record.[facility]
--- OUTSIDE RECORDS SUMMARY | 2025-05-17 13:13 | XMS_ITS | Encounter Summary ---
Author Organization [facility] Address [address] [address] Phone Care Team Providers Care Dixonac Operator Name Role Phone Daron Naranjo MD Primary Care Provider [phone] Reason for Visit * Reason Comments Medication Refill Encounter Details Date Type Department Care Team ([facility] st Contact Info) Description 05/23/2023 Refill [facility] at [address] [address] [address], [address] [place] [address] [email or web address] Medication Refill Social History Tobacco Use Types Packs/Day Years [...] on file Sexual Orientation Not on file documented as of this encounter Plan of Treatment Not on file documented as of this encounter Visit Diagnoses Not on filedocumented in this encounter Additional Health Concerns Infection Onset Date Last Indicated Resolved Time CoV-Risk 04/21/2024 04/21/2024 04/21/2024 4:17 PM EDT COVID-19 04/21/2024 04/21/2024 05/12/2024 1:21 AM EDT documented as of this encounter Care Teams Dixonac Operator Relationship Specialty Start Date End Date Daron Naranjo MD [address] [place] [address] [place] [address] PCP - General Internal Medicine 12/02/22 documented as of this encounter Additional Source Comments The information contained in this document represents components of the legal health record. It is not the complete legal health record.[facility]
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
[2025-05-17 13:40] VITALS: BP 102/70; PULSE 84; RESP 15; TEMP 36.7; O2SAT 99; BMI 44.3
== END 2025-05-17 14:17 | disposition home or self-care (01) ==
PROVIDERS: Visit Provider Physician Assistant
DX: M54.2 Cervicalgia (principal); V89.2XXA Person injured in unspecified motor-vehicle accident, traffic, initial encounter; Z04.3 Encounter for examination and observation following other accident

== ENCOUNTER 2025-05-17 14:33 | Emergency (ER) | payer OTHER, SELFPAY ==
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
[2025-05-17 14:37] VITALS: BP 137/75; PULSE 86; RESP 20; TEMP 36.2; O2SAT 97; BMI 44.1
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
[2025-05-17 16:50] VITALS: BP 143/81; PULSE 88; RESP 12; TEMP 36.2; O2SAT 96
--- NOTE | 2025-05-17 16:58 | PC.NURSE ---
Pt reports pain from left elbow to pinky, neck and trapezius pain on left. No other complaints at this time.
[2025-05-17] MEDS: Lidocaine 4 % Patch ADH..PATCH 1 PATCH TRANSDERMA (17:27)
[2025-05-17 19:14] VITALS: BP 143/81; PULSE 88; RESP 12; TEMP 36.2; O2SAT 96
== END 2025-05-17 19:14 | disposition home or self-care (01) ==
PROVIDERS: Emergency Provider Emergency Medicine
DX: S39.012A Strain of muscle, fascia and tendon of lower back, initial encounter (principal); V49.88XA Car occupant (driver) (passenger) injured in other specified transport accidents, initial encounter; Y93.89 Activity, other specified; Y92.414 Local residential or business street as the place of occurrence of the external cause; Y99.8 Other external cause status
CPT/HCPCS: 70450; 72100; 72125; 73000; 96372; 99284; J1885

== ENCOUNTER → 2025-05-17 14:44 | Outpatient (BNV) | payer MEDICARE, MEDICAID, SELFPAY | PROVIDERS: Emergency Provider Emergency Medicine; Visit Provider Radiology Diagnostic Radiology | DX: M54.2 Cervicalgia (principal); R51.9 Headache, unspecified; M54.50 Low back pain, unspecified; M25.512 Pain in left shoulder; V43.62XA Car passenger injured in collision with other type car in traffic accident, initial encounter | CPT/HCPCS: 70450; 72100; 72125; 73000 ==

== ENCOUNTER 2025-05-23 10:24 | Outpatient (AMB) | payer MEDICARE, MEDICAID, SELFPAY ==
[2025-05-23 10:26] VITALS: BP 130/82; PULSE 89; RESP 18; TEMP 36.2; O2SAT 96; BMI 44.5
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
== END 2025-05-23 11:32 | disposition home or self-care (01) ==
LOC: HO.HMCH 10:25
DX: M54.9 Dorsalgia, unspecified (principal); M54.2 Cervicalgia; M79.10 Myalgia, unspecified site; V89.2XXA Person injured in unspecified motor-vehicle accident, traffic, initial encounter; R51.9 Headache, unspecified; M54.16 Radiculopathy, lumbar region

== ENCOUNTER → 2025-05-23 10:24 | Outpatient (BNVA) | payer MEDICARE, MEDICAID, SELFPAY | DX: M54.2 Cervicalgia (principal); R51.9 Headache, unspecified; M62.838 Other muscle spasm; M54.16 Radiculopathy, lumbar region; V89.2XXA Person injured in unspecified motor-vehicle accident, traffic, initial encounter; Y93.9 Activity, unspecified; Y92.9 Unspecified place or not applicable; Y99.9 Unspecified external cause status | CPT/HCPCS: 96127; 99212 ==